=== PATIENT | female | born 1940 | race Caucasian/White ===

== ENCOUNTER 2016-10-05 15:55 | Emergency (ER) ==
[2016-10-05 15:55] VITALS: BMI 23.6
[2016-10-05] MEDS ORDERED: DECADRON 4 MG/ML SDV IM STA (16:17)
[2016-10-05] MEDS ORDERED: DIFLUCAN PO STA (16:17)
[2016-10-05 16:27] VITALS: BP 168/94; TEMP 98
--- NOTE | 2016-10-05 16:27 | ED.PDOC ---
General ED Provider: Dr. CHRISTY MIRANDA Chief Complaint: Rash Stated Complaint: Rash on the face for 2 week, using otc medications not helping , was out side cleaning the leaves, couple days ago.also has some cold chill, Time Seen by Physician: 16:25 Mode of Arrival: Walk-In Information Source: Patient Primary Care Provider: EDWARD SCHAEFER Nursing and Triage Documentation Reviewed and Agree: Yes Skin Complaint Exam - Skin Rash/Itching Complaint/Exam Symptoms Are: Still present Initial Severity: Mild Current Severity: Mild Potential Exposures: Reports: Plants Aggravating: Reports: None Alleviating: Reports: None Associated Signs and Symptoms: Denies: Difficulty breathing, Fever, Chills Skin Findings: Present: Dry scaly skin, Lesions Differential Diagnoses: Drug Rash, Eczema, Poison Zohra/Johnston Review of Systems - Review Of Systems Constitutional: Reports: No symptoms Eyes: Reports: No symptoms Ears, Nose, Mouth, Throat: Reports: No symptoms Respiratory: Reports: No symptoms Cardiac: Reports: No symptoms GI: Reports: No symptoms : Reports: No symptoms Musculoskeletal: Reports: No symptoms Skin: Reports: Rash Neurological: Reports: No symptoms Endocrine: Reports: No symptoms Hematologic/Lymphatic: Reports: No symptoms All Other Systems: Reviewed and Negative Past Medical History - Past Medical History Previously Healthy: No Endocrine: Reports: None Cardiovascular: Reports: Hypertension Respiratory: Reports: None Hematological: Reports: None Gastrointestinal: Reports: None Genitourinary: Reports: None Neuro/Psych: Reports: None Musculoskeletal: Reports: None Cancer: Reports: None Last Menstrual Period: none - Surgical History General Surgical History: Reports: Tonsillectomy, Adenoidectomy - Family History Family History: Reports: None - Social History Smoking Status: Never smoker Hx Substance Use: No Alcohol Screening: None Physical Exam - Physical Exam Appearance: Well-appearing, No pain distress, Well-nourished Eyes: HIWOT, EOMI, Conjunctiva clear ENT: Ears normal, Nose normal, Oropharynx normal Respiratory: Airway patent, Breath sounds clear, Breath sounds equal, Respirations nonlabored Cardiovascular: RRR, Pulses normal, No rub, No murmur GI/: Soft, Nontender, No masses, Bowel sounds normal, No Organomegaly Musculoskeletal: Normal strength, ROM intact, No edema, No calf tenderness Skin: Warm, Dry, Normal color Neurological: Sensation intact, Motor intact, Reflexes intact, Cranial nerves intact, Alert, Oriented Psychiatric: Affect appropriate, Mood appropriate Critical Care Note - Critical Care Note Total Time (mins): 0 Course - Course Hematology/Chemistry: 10/05/16 16:25 10/05/16 16:25 Orders, Labs, Meds: Lab Review 10/05/16 16:25 WBC 5.55 RBC 4.68 Hgb 13.4 Hct 40.2 MCV 85.9 MCH 28.6 MCHC 33.3 RDW Coeff of Edouard 13.9 Plt Count 188 Immature Gran % (Auto) 0.2 Neut % (Auto) 52.2 Lymph % (Auto) 35.7 Randall % (Auto) 7.9 Eos % (Auto) 3.6 Baso % (Auto) 0.4 Immature Gran # (Auto) 0.0 Neut # 2.9 Lymph # 2.0 Randall # 0.4 Eos # 0.2 Baso # 0.0 Sodium 141 Potassium 4.1 Chloride 104 Carbon Dioxide 27 Anion Gap 14.1 BUN 16 Creatinine 0.88 Estimated GFR (MDRD) 62.00 BUN/Creatinine Ratio 18.18 Glucose 93 Calcium 9.4 Total Bilirubin 0.39 AST 27 ALT 16 Alkaline Phosphatase 64 Total Protein 6.9 Albumin 4.0 Globulin 2.9 Albumin/Globulin Ratio 1.38 Urine Color Yellow Urine Clarity Clear Urine pH 6.0 Ur Specific Imperial 1.015 Urine Protein Negative Urine Glucose (UA) Negative Urine Ketones Negative Urine Blood Negative Urine Nitrite Negative Urine Bilirubin Negative Urine Urobilinogen 0.2 Ur Leukocyte Esterase Trace Urine Microscopic WBC 0-2 Ur Squamous Epith Cells 0-2 Urine Bacteria Trace Orders Category Date Time Status CBC W/ AUTO DIFF Stat LAB 10/05/16 16:25 Completed COMPREHENSIVE METABOLIC PANEL Stat LAB 10/05/16 16:25 Completed URINALYSIS C & S IF INDICATED Stat LAB 10/05/16 16:25 Completed Dexamethasone 4 mg/ml Inj [Decadron 4 mg/ml Sdv] MEDS 10/05/16 16:17 Discontinued 4 mg IM ONCE STA Fluconazole [Diflucan] MEDS 10/05/16 16:17 Discontinued 100 mg PO ONCE STA Medications Discontinued Medications Generic Name Dose Route Start Last Admin Trade Name Freq PRN Reason Stop Dose Admin Dexamethasone Sodium Phosphate 4 mg 10/05/16 16:17 10/05/16 16:27 Decadron 4 Mg/Ml Sdv IM 10/05/16 16:18 4 mg ONCE STA Administration Fluconazole 100 mg 10/05/16 16:17 10/05/16 16:24 Diflucan PO 10/05/16 16:18 100 mg ONCE STA Administration Vital Signs: Temp Pulse Resp BP Pulse Ox 10/05/16 15:55 98.0 F 70 18 168/94 H 97 Departure - Departure Time of Disposition: 17:07 Disposition: HOME SELF-CARE Discharge Problem: Pruritic rash Instructions: Dermatitis (ED) Condition: Stable Pt referred to PMD for follow-up: Yes Additional Instructions: DO NOT SCRATCH THE AREAS, IF NOT BETTER COME BACK Prescriptions: Clindamycin HCl 300 mg PO TID #15 capsule Prednisone 10 mg PO BIDWM #14 tablet Allergies/Adverse Reactions: Allergies No Known Allergies Allergy (Verified 10/05/16 16:05) Home Medications: Ambulatory Orders Aspirin [Aspirin EC] 81 mg PO DAILYWM 10/29/14 Bisoprolol Fumarate [Bisoprolol Fumarate] 5 mg PO DAILY 10/29/14 Calcium Carbonate/Vitamin D3 [Caltrate 600 + D Tablet] 1 tab PO DAILY 09/19/15 Multivitamin 1 tab PO DAILY 09/19/15 Clindamycin HCl 300 mg PO TID #15 capsule 10/05/16 Prednisone 10 mg PO BIDWM #14 tablet 10/05/16 Disposition Discussed With: Patient
[2016-10-05 16:34] LABS: BASOPHILS % (AUTO) 0.4 % (0.0-3.0); EOSINOPHILS # (AUTO) 0.2 K/ul (0.0-0.7); EOSINOPHILS % (AUTO) 3.6 % (0.0-7.0); HEMATOCRIT 40.2 % (37.0-47.0); HEMOGLOBIN 13.4 g/dl (12.0-16.0); IMMATURE GRANULOCYTE % (AUTO) 0.2 % (0.0-5.0); LYMPHOCYTES % (AUTO) 35.7 (10.0-50.0); MEAN CORPUSCULAR HEMOGLOBIN 28.6 pg (27.0-31.0); MEAN CORPUSCULAR HGB CONC 33.3 (31.8-35.4); MEAN CORPUSCULAR VOLUME 85.9 fl (81.0-99.0); MONOCYTES # (AUTO) 0.4 K/uL (0.4-2.0); MONOCYTES % (AUTO) 7.9 (0-10); NEUTROPHILS # (AUTO) 2.9 K/ul (2.0-6.9); NEUTROPHILS % (AUTO) 52.2; PLATELET COUNT 188 10^3/uL (140-440); RED BLOOD COUNT 4.68 10^6/ul (4.20-5.40); WHITE BLOOD COUNT 5.55 K/ul (4.6-10.2)
[2016-10-05 16:36] LABS: BILIRUBIN,URINE Negative (NEGATIVE); KETONES,URINE Negative (NEGATIVE); LEUKOCYTE ESTERASE ,URINE Trace (NEGATIVE); NITRITE,URINE Negative (NEGATIVE); PROTEIN,URINE Negative (NEGATIVE); URINE, BLOOD Negative (NEGATIVE)
[2016-10-05 16:39] LABS: ADD URINE MICROSCOPIC YES; BACTERIA,URINE TRACE (NOT PRESENT)
[2016-10-05 16:54] LABS: ALBUMIN/GLOBULIN RATIO 1.38; ANION GAP 14.1; BILIRUBIN,TOTAL 0.39 mg/dL (0.00-1.20); BUN/CREATININE RATIO 18.18; CALCIUM 9.4 mg/dL (8.2-10.2); CREATININE 0.88 mg/dL (0.60-1.30); POTASSIUM 4.1 mmol/L (3.5-5.10); TOTAL PROTEIN 6.9 g/dL (5.8-8.1)
== END 2016-10-05 17:18 | disposition home or self-care (01) ==
LOC: ED 15:55
DX: R21 Rash and other nonspecific skin eruption (principal); L29.9 Pruritus, unspecified
CPT/HCPCS: 36415; 80053; 81001; 85025; 96372; 99283

== ENCOUNTER 2016-12-26 22:52 | Emergency (ER) | payer OTHER ==
[2016-12-26 22:53] VITALS: BMI 23.6
[2016-12-26 23:12] VITALS: BP 166/82; TEMP 97.7
--- NOTE | 2016-12-26 23:28 | ED.PDOC ---
General ED Provider: Dr. MAREK MENARD-ER Chief Complaint: Eye Problem Stated Complaint: i had flashing squigglhy lights in my vision that lasted about 15sec--its gone now adn my vision is ok now Time Seen by Physician: 22:55 Mode of Arrival: Walk-In Information Source: Patient Exam Limitations: No limitations Primary Care Provider: EDWARD SCHAEFER Nursing and Triage Documentation Reviewed and Agree: Yes EENT Complaint Exam - Eye Complaint/Exam Onset/Duration: 30 min ago Symptoms Are: Resolved Timing: Intermittent Initial Severity: Mild Current Severity: Mild Location: Discreet Character: Reports: Dull Aggravating: Reports: None Alleviating: Reports: None Associated Signs and Symptoms: Denies: Photophobia, Clear drainage, Purulent drainage, Vision impairment, Fever, Swelling Related History: Reports: Glaucoma, Drops used Penetrating Injury Risk Factors: None Globe Rupture Risk Factors: None Optic Artery Occlusion Risk Factors: None Visual Field: Normal Extraocular Movement: Normal Orbit Findings: Normal Globe Findings: Intact Lid Findings: Normal Corneal Findings: Clear Fundi: Normal Slit Lamp Used: No Differential Diagnoses: Detached Retina, Retinal Artery Occlusion Review of Systems - Review Of Systems Constitutional: Reports: No symptoms Eyes: Reports: Vision change, Glasses Ears, Nose, Mouth, Throat: Reports: No symptoms Respiratory: Reports: No symptoms Cardiac: Reports: No symptoms GI: Reports: No symptoms : Reports: No symptoms Musculoskeletal: Reports: No symptoms Skin: Reports: No symptoms Neurological: Reports: No symptoms Endocrine: Reports: No symptoms Hematologic/Lymphatic: Reports: No symptoms All Other Systems: Reviewed and Negative Past Medical History - Past Medical History Previously Healthy: No Endocrine: Reports: None Cardiovascular: Reports: Hypertension Respiratory: Reports: None Hematological: Reports: None Gastrointestinal: Reports: None Genitourinary: Reports: None Neuro/Psych: Reports: None Musculoskeletal: Reports: None Cancer: Reports: None Last Menstrual Period: post menopausal at 54 y/o - Surgical History General Surgical History: Reports: Tonsillectomy, Adenoidectomy - Family History Family History: Reports: None - Social History Smoking Status: Never smoker Hx Substance Use: No Alcohol Screening: Occasionally Lives: With family - Immunizations Tetanus Shot up to Date: Yes Physical Exam - Physical Exam Appearance: Well-appearing Eyes: HIWOT, EOMI, Conjunctiva clear ENT: Ears normal, Nose normal, Oropharynx normal Neck: Supple Respiratory: Airway patent Cardiovascular: RRR, Pulses normal, No rub, No murmur GI/: Soft, Nontender, No masses, Bowel sounds normal, No Organomegaly Musculoskeletal: Normal strength Skin: Warm Neurological: Sensation intact Psychiatric: Affect appropriate, Mood appropriate, Anxious Interpretation - Radiology Interpretation Radiology Interpretation By: Radiologist Radiology Results: Negative Exam Interpreted: CT Scan Re-Evaluation - Re-Evaluation Time of Re-Evaluation: 00:27 Status: Improved (no visual problems now --no floaters--denies pain) Vital Signs Stable: Yes (bp 140/70) Pain Level: 0 Appearance: NAD Lungs: Clear Skin: Warm and Dry Neuro: Alert and Oriented X3 CV: RRR Physician Notification - Case Discussed Physician Notified: dr hinkle(retina specialist)--wants to see 8 am Time of Notification: 23:29 Critical Care Note - Critical Care Note Total Time (mins): 0 Course - Course Orders, Labs, Meds: Orders Category Date Time Status ED BULK INTAKE WORKER APPLIED .ONCE EMERGENCY 12/26/16 23:02 Active ESR Stat LAB 12/26/16 23:[address] HEAD W/O CONTRAST Stat RADS 12/26/16 23:02 Ordered Vital Signs: Temp Pulse Resp BP Pulse Ox 12/26/16 22:58 97.7 F 75 20 166/82 H 97 Departure - Departure Time of Disposition: 00:28 Disposition: HOME SELF-CARE Discharge Problem: Visual distortion Instructions: Blurred Vision (ED) Condition: Good Pt referred to PMD for follow-up: Yes Additional Instructions: f/u with dr hinkle tomorrow at 8am at [id number] [facility]... Allergies/Adverse Reactions: Allergies No Known Allergies Allergy (Verified 12/26/16 23:13) Home Medications: Ambulatory Orders Aspirin [Aspirin EC] 81 mg PO DAILYWM 10/29/14 Bisoprolol Fumarate [Bisoprolol Fumarate] 5 mg PO DAILY 10/29/14 Multivitamin 1 tab PO DAILY 09/19/15 Disposition Discussed With: Patient
[2016-12-26 23:51] LABS: ERYTHROCYTE SEDIMENTATION RATE 14 mm/hr (0-20); ESR INTERNAL QC INTERNAL QC VALID
--- NOTE | 2016-12-27 00:24 | CT ---
EXAM: CT head without contrast. HISTORY: Eye pain. PROCEDURE: Contiguous axial CT images of the head without contrast with coronal and sagittal reform ats. FINDINGS: There is mild diffuse cerebral atrophy. The ventricles and basal cisterns are normal in s ize and configuration. No evidence of mass or midline shift. No intracranial hemorrhage or evidenc e of large vessel infarct. No extra-axial fluid collection. The paranasal sinuses and mastoid air c ells are well-aerated. The orbits are normal in appearance. The globes are intact and symmetric. Impression: No intracranial hemorrhage or evidence of large vessel infarct. Mild diffuse cerebral atrophy.
== END 2016-12-27 00:34 | disposition home or self-care (01) ==
LOC: ED 22:52
DX: H53.8 Other visual disturbances (principal); I10 Essential (primary) hypertension
CPT/HCPCS: 36415; 85651; 86038; 99283

== ENCOUNTER 2018-11-10 06:39 | Outpatient (CLI) ==
--- NOTE | 2018-11-10 08:49 | STRESSECHO ---
Date of Test: 11/10/18 Ordering Physician: DR. EDWARD SCHAEFER Occupation: RETIRED Reason for Exam: SOB Smoking History: NONE Height: 69" Weight: 163 LBS Current Medications: BISOPROLOL FUMARATE TABS Resting EKG: SINUS RHYTHM/ NO ACUTE CHANGES Target Heart Rate: 120/142 S-T SEGMENT STAGE MPH/GRADE HEART RATE BPM BLOOD PRESSURE MMHG RHYTHM +/- ELEVATION DEPRESSION SYMPTOMS AT REST 63 BPM 120/78 MMHG SR X NONE 1 1.7/10% 105 BPM 140/70 MMHG SR X NONE 2 2.5/12% 3 3.4/14% 4 4.2/16% 5 5.0/18% Immediately After 126 BPM 156/66 MMHG SR X FATIGUE Minutes Post Exercise 4:00 70 BPM 126/80 MMHG SR X NONE Minutes Post Exercise DURATION OF EXERCISE: 4:00 MAXIMUM HEART RATE REACHED: 126 BPM REASON FOR TERMINATION: FATIGUE 98% OXYGEN SATURATION WITH EXERCISE ON ROOM AIR INTERPRETATION: 1. NO EVIDENCE OF ISCHEMIA BY ST-T WAVE 2. NO CHEST PAIN OR CHEST DISCOMFORT 3. BLOOD PRESSURE RESPONSE NORMAL 4. FEW PAC'S WITH EXERCISE NORMAL LEFT VENTRICULAR CONTRACTILITY--RESTING AND POST EXERCISE MTDD
--- NOTE | 2018-11-16 09:51 | ECHO2D ---
Date of Exam: 11/10/18 Ordering Physician: DR. EDWARD SCHAEFER Room #: OP Reason for Echo: SOB M-Mode Normal Adult Results LV Dimensions Normal Adult Results AoV Opening excursions >1.6 >1.6 LVEDD-base- 3.5-5.8 4.2 Ao root dimensions 2.0-3.7 3.3 LVESD-base- 3.1-4.6 L. Atrium dimensions 1.9-3.8 3.9 Post. Wall thickness 0.8-1.1 1.2 IV septum (thickness) 0.7-1.2 1.1 Post. Wall excursion 0.72-1.3 NORMAL Septal motion NORMAL Systolic motion R. Ventricular cavity 1.5-2.0 NORMAL LVEF 60% 60% Paradoxical septal wall motion NORMAL 2-D : 2-D M Mode Echocardiogram was performed using apical four chamber and left parasternal long and short axis views. Mitral, tricuspid and aortic valves appear to be normal. Contractility of the left ventricle seems to be normal, so is the cavity size. Left atrial cavity size and aortic root appear to be normal. There is no pericardial effusion. There is no thrombus noted in the left ventricular or left aortic cavity. No mitral valve prolapse noted. M-MODE: MV: NORMAL AV: NORMAL TV: NORMAL PV: CHAMBER SIZE: NORMAL WALL MOTION: NORMAL PERICARDIUM: NORMAL INTERPRETATION: 1. NORMAL 2 "D" "M" MODE ECHO MTDD
--- NOTE | 2018-11-16 09:55 | ECHOSTRESS ---
Date of Exam: 11/10/18 Ordering Physician: DR. EDWARD SCHAEFER Reason for Echo: SOB, STRESS TEST--NO ISCHEMIA M-Mode Normal Adult Results LV Dimensions Normal Adult Results AoV Opening excursions >1.6 LVEDD-base- 3.5-5.8 Ao root dimensions 2.0-3.7 LVESD-base- 3.1-4.6 L. Atrium dimensions 1.9-3.8 Post. Wall thickness 0.8-1.1 IV septum (thickness) 0.7-1.2 Post. Wall excursion 0.72-1.3 Septal motion Systolic motion R. Ventricular cavity 1.5-2.0 LVEF 60% Paradoxical septal wall motion 2-D: NORMAL LEFT VENTRICULAR CONTRACTILITY--RESTING AND POST EXERCISE M-MODE: MV: AV: TV: PV: CHAMBER SIZE: WALL MOTION: NORMAL LEFT VENTRICULAR CONTRACTILITY--RESTING AND POST EXERCISE PERICARDIUM: INTERPRETATION: 1. NORMAL LEFT VENTRICULAR CONTRACTILITY--RESTING AND POST EXERCISE MTDD
== END 2018-11-10 06:40 | disposition home or self-care (01) ==
LOC: CAR 06:39
PROVIDERS: ATTEND Internal Medicine
DX: R06.02 Shortness of breath (principal)
CPT/HCPCS: 93005; 93010

== ENCOUNTER 2018-12-03 09:21 | Outpatient (CLI) | payer OTHER ==
--- NOTE | 2018-12-03 10:16 | CT ---
EXAM: CT abdomen pelvis without contrast HISTORY: Right flank pain, renal stones COMPARISON: 10/04/2012 TECHNIQUE: CT abdomen pelvis performed without intravenous contrast. Coronal and sagittal reformatt ed images obtained. FINDINGS: Mild bibasilar atelectasis. No free air. No acute abnormalities of the bones. Degenerat veto change in the spine. Stable sclerotic focus of iliac bone. Probable bone island L4. Heart norm al in size. Coronary calcifications. Several liver cysts and additional sub centimeter hypodensitie s in the liver, too small to characterize the. Gallbladder unremarkable. Pancreas unremarkable. Sp diamond unremarkable. Adrenals unremarkable. Aorta normal in caliber. Mild atherosclerosis. Uterus u nremarkable. No lymphadenopathy or ascites. Minimal fat-containing periumbilical hernia. Stomach u nremarkable. No dilated loops small bowel. Appendix appears normal. Mild colonic diverticulosis. No hydronephrosis or nephrolithiasis. Punctate right nephrolithiasis. No hydronephrosis. Bilateral parapelvic renal cysts. No calculi visualized in the normal course of the ureters. Bladder grossly unremarkable. IMPRESSION: 1. Punctate right nephrolithiasis. No hydronephrosis. 2. Bilateral renal parapelvic cysts. Hepatic cysts. 3. Mild colonic diverticulosis. 4. Coronary calcifications.
== END 2018-12-03 09:22 | disposition home or self-care (01) ==
LOC: RAD 09:21
PROVIDERS: ATTEND Internal Medicine
DX: R35.0 Frequency of micturition (principal); R10.9 Unspecified abdominal pain
CPT/HCPCS: 74176